=== PATIENT | male | born 1985 | race Caucasian/White ===

== ENCOUNTER 2022-03-08 03:59 | Emergency (ER) | payer MEDICAID ==
[~2022-03-08] VITALS: Ht 180.3 cm; Wt 83.9 kg
[2022-03-08 04:10] VITALS: BP 144/95
--- NOTE | 2022-03-08 04:10 | NUR ---
TO BED AMBULATORY
--- NOTE | 2022-03-08 04:24 | NUR ---
RECEIVED IN BED 12 WITH C/O LEFT RIB PAIN AFTER FALLING FROM [employer] 3 DAYS AGO
[2022-03-08] MEDS ORDERED: KETOROLAC 30 MG/ML VIAL IM ONE (05:00)
[2022-03-08] MEDS ORDERED: LIDOCAINE 5% 1 EA PATCH TP SCH (05:00)
[2022-03-08] MEDS ORDERED: ACET-5629 PO (05:02)
[2022-03-08] MEDS ORDERED: LID5T TP (05:02)
[2022-03-08] MEDS ORDERED: IBUP-2218 PO (05:02)
[2022-03-08 05:50] VITALS: BP 144/95
--- NOTE | 2022-03-08 05:50 | NUR ---
Patient discharged with v/s stable. Written and verbal after care instructions given and explained. Patient verbalized understanding. Ambulatory with steady gait. All questions addressed prior to discharge. Advised to follow up with PMD.
== END 2022-03-08 05:50 | disposition home or self-care (01) ==
LOC: MED 03:59
DX: S20.20XA Contusion of thorax, unspecified, initial encounter (principal); F12.90 Cannabis use, unspecified, uncomplicated; Z79.899 Other long term (current) drug therapy; V00.131A Fall from skateboard, initial encounter; Y93.51 Activity, roller skating (inline) and skateboarding; Y92.828 Other wilderness area as the place of occurrence of the external cause; Y99.8 Other external cause status
CPT/HCPCS: 71101; 96372; 99283; J1885